=== PATIENT | male | born 1955 | race Caucasian/White ===

== ENCOUNTER → 2020-12-08 | Outpatient (CLI) | payer MEDICARE | LOC: CT 13:08 | DX: I74.5 Embolism and thrombosis of iliac artery (principal); I70.219 Atherosclerosis of native arteries of extremities with intermittent claudication, unspecified extremity; K55.069 Acute infarction of intestine, part and extent unspecified; I77.4 Celiac artery compression syndrome; T82.898A Other specified complication of vascular prosthetic devices, implants and grafts, initial encounter | CPT/HCPCS: 36415; 75635; 82565; Q9965 ==